=== PATIENT | male | born 1935 | race Caucasian/White ===

== ENCOUNTER 2016-12-16 18:48 | Inpatient (IN) | payer OTHER ==
[~2016-12-16] VITALS: Ht 182.9 cm; Wt 93.0 kg
[~2016-12-16 18:48] MED LIST: ASPIR 8181 M1 PO; AXID150 MG PO; BENAZEPRIL HCL10 MG PO; CENTRUM SILVER1 EAC3 PO; COUMADIN3 MG PO; ELAVIL10 MG PO; KEFLEX500 MG PO; LASIX40 MG PO; LIPITOR40 MG PO; METOPROLOL TAR100 MG PO; NORCO 5/3251 TABLET PO; NORVASC10 MG PO; PROAIR HFA8.5 GM IH; TRAMADOL HCL50 MG PO; TYLENOL EXTRA500 MG PO; VITAMIN D31000 UNI2 PO
[2016-12-16 19:09] LABS: HEMATOCRIT 47.6 % (38.0-50.0); MCH 32.8 PG (29.0-34.0); MCHC 32.8 G/DL (30.0-36.0); MCV 100.2 FL (86-99); PLATELET COUNT 138 K/uL (156-360); RBC DIS.WIDTH-CV 12.6 % (11.8-14.6); RBC DIS.WIDTH-SD 47.3 % (39-53); RED BLOOD COUNT 4.75 M/uL (4.00-5.50); WHITE BLOOD COUNT 6.6 K/uL (4.1-10.2)
[2016-12-16 19:18] LABS: INTER. NORMALIZED RATIO 1.3; PROTHROMBIN TIME 14.8 SEC (10.2-12.9)
[2016-12-16 19:20] LABS: PTT 29.2 SEC (25-37)
[2016-12-16 19:21] LABS: CHLORIDE 112 mEq/L (99-109); POTASSIUM 4.9 mEq/L (3.7-5.4); SODIUM 142 mEq/L (136-147)
[2016-12-16 19:23] LABS: GLUCOSE 115 mg/dL (70-99)
[2016-12-16 19:24] LABS: ANION GAP 10 MEQ/L (2-14)
[2016-12-16 19:27] LABS: GFR ESTIMATE (CALCULATED) 20 mL/min/
[2016-12-16 19:28] LABS: UREA NITROGEN (BUN) 51 mg/dL (9-23)
[2016-12-16 22:18] LABS: ADD MIUA? YES; BILIRUBIN NEGATIVE; BLOOD SMALL; COLOR YELLOW ((YELLOW)); GLUCOSE (STRIP) NEGATIVE; KETONES NEGATIVE; LEUKOCYTES NEGATIVE; NITRITE NEGATIVE; PROTEIN (STRIP) 100; SPECIFIC GRAVITY 1.014 (1.000-1.030); UROBILINOGEN 0.2 MG/DL (0.2-1.0)
[2016-12-16 22:23] LABS: BACTERIA RARE /HPF; EPITHELIAL CELLS RARE /HPF; HYALINE CASTS 0-5 /LPF; MUCUS TRACE /LPF; UCUL ADDED? NO; WHITE BLOOD CELLS 0-5 /HPF (0-5)
[2016-12-17 01:13] VITALS: BP 190/89
[2016-12-17 01:23] LABS: HDL CHOLESTEROL 50 MG/DL (Desirable>=40); LDL CHOLESTEROL 67 mg/dL (Desirable<100); NON-HDL CHOLESTEROL 107 mg/dL (Desirable<160); TOTAL CHOLESTEROL 157 mg/dL (Desirable<200); TRIGLYCERIDES 200 MG/DL (Normal: <150)
[2016-12-17 04:34] VITALS: BP 186/95
[2016-12-17 06:01] LABS: HEMATOCRIT 44.5 % (38.0-50.0); MCH 33.4 PG (29.0-34.0); MCV 101.1 FL (86-99); MEAN PLAT.VOLUME 11.9 uM^3 (9.0-12.4); PLATELET COUNT 129 K/uL (156-360); RBC DIS.WIDTH-CV 12.7 % (11.8-14.6); RBC DIS.WIDTH-SD 47.8 % (39-53); WHITE BLOOD COUNT 6.1 K/uL (4.1-10.2)
[2016-12-17 06:35] LABS: ALKALINE PHOSPHATASE 85 IU/L (3-129); ANION GAP 11 MEQ/L (2-14); CHLORIDE 111 MEQ/L (99-109); GFR ESTIMATE (CALCULATED) 22 mL/min/; GLUCOSE 88 mg/dL (70-99); POTASSIUM 4.6 MEQ/L (3.7-5.4); SAMPLE HEMOLYSIS CHECK 0; SAMPLE ICTERIC CHECK 0; SAMPLE LIPEMIA CHECK 0; SODIUM 143 MEQ/L (136-147); TOTAL BILIRUBIN 0.8 MG/DL (0.0-1.0); UREA NITROGEN (BUN) 53 mg/dL (9-23)
[2016-12-17 07:20] LABS: Estimated Average Glucose 120 mg/dL (70-123); HEMOGLOBIN A1c (GLYCOHEMOGLOB) 5.8 % HGB (Below 5.7)
[2016-12-17 08:05] VITALS: BP 186/96
[2016-12-17 11:01] VITALS: BP 198/104
[2016-12-17] MEDS ORDERED: COUMADIN2.5 MG PO (15:51)
[2016-12-17 15:53] LABS: INTER. NORMALIZED RATIO 1.3; PROTHROMBIN TIME 14.3 SEC (10.2-12.9)
[2016-12-17 16:02] VITALS: BP 194/83
[2016-12-17] MEDS ORDERED: ALLERGY RELIEF180 MG PO (16:35)
[2016-12-17] MEDS ORDERED: LOTENSIN5 MG PO (16:35)
[2016-12-17] MEDS ORDERED: HEARTBURN RELI150 M1 PO (16:35)
[2016-12-17] MEDS ORDERED: LIPITOR40 MG PO (16:36)
[2016-12-17] MEDS ORDERED: METOPROLOL SUC100 MG PO (16:36)
[2016-12-17] MEDS ORDERED: NORVASC10 MG PO (16:36)
[2016-12-17 19:39] VITALS: BP 162/73
[2016-12-18 03:43] VITALS: BP 174/81
[2016-12-18 06:18] LABS: INTER. NORMALIZED RATIO 1.2; PROTHROMBIN TIME 13.5 SEC (10.2-12.9)
[2016-12-18 08:55] VITALS: BP 204/98
[2016-12-18 15:43] VITALS: BP 192/87
[2016-12-18 19:17] VITALS: BP 170/90
[2016-12-18 23:48] VITALS: BP 185/86
[2016-12-19 03:43] VITALS: BP 198/87
[2016-12-19 07:00] LABS: INTER. NORMALIZED RATIO 1.2; PROTHROMBIN TIME 13.6 SEC (10.2-12.9)
[2016-12-19 07:18] LABS: ANION GAP 11 MEQ/L (2-14); CHLORIDE 111 MEQ/L (99-109); GFR ESTIMATE (CALCULATED) 24 mL/min/; GLUCOSE 103 mg/dL (70-99); POTASSIUM 4.4 MEQ/L (3.7-5.4); SAMPLE HEMOLYSIS CHECK 0; SAMPLE ICTERIC CHECK 0; SAMPLE LIPEMIA CHECK 0; SODIUM 142 MEQ/L (136-147); UREA NITROGEN (BUN) 55 mg/dL (9-23)
[2016-12-19 07:46] VITALS: BP 176/77
[2016-12-19 08:02] LABS: EOSINOPHIL (%) 2.5 % (0-5); EOSINOPHIL COUNT 0.2 K/uL (0-0.3); HEMATOCRIT 48.7 % (38.0-50.0); IMMATURE GRANULOCYTE (%) 0.5 % (0.0-0.7); INSTRUMENT ABS NEUTROPHIL CT 5.7 K/uL; LYMPHOCYTE COUNT 1.2 K/uL (1.0-2.8); MCH 32.9 PG (29.0-34.0); MCHC 33.5 G/DL (30.0-36.0); MCV 98.4 FL (86-99); MEAN PLAT.VOLUME 11.2 uM^3 (9.0-12.4); MONOCYTE (%) 10.2 % (3-12); MONOCYTE COUNT 0.8 K/uL (0-0.8); NEUTROPHIL (%) 71.9 % (45-76); NEUTROPHIL COUNT 5.7 K/uL (1.8-6.4); PLATELET COUNT 149 K/uL (156-360); RBC DIS.WIDTH-CV 12.7 % (11.8-14.6); RED BLOOD COUNT 4.95 M/uL (4.00-5.50)
[2016-12-19 11:38] VITALS: BP 179/86
[2016-12-19] MEDS ORDERED: VENTOLIN HFA18 GM IH (13:59)
[2016-12-19] MEDS ORDERED: LOVENOX30 MG/0.3 SC (14:00)
[2016-12-19] MEDS ORDERED: APRESOLINE25 MG PO (14:00)
[2016-12-19] MEDS ORDERED: TYLENOL REGULA325 MG PO (14:01)
[2016-12-19] MEDS ORDERED: VALSARTAN160 MG PO (14:01)
[2016-12-19] MEDS ORDERED: DOCUSATE SODIU100 MG PO (14:01)
[2016-12-19] MEDS ORDERED: VITAMIN D31000 UNI2 PO (14:02)
[2016-12-19 16:03] VITALS: BP 171/81
== END 2016-12-19 20:34 | DRG 89 ==
LOC: EME 18:48 → EDOF 22:36 → 5SOUTH 22:36 → ENRESERV 22:38 → 5SOUTH 12-17 00:59
PROVIDERS: Emergency Medicine; Family Medicine Sports Medicine
DX: S06.0X9A Concussion with loss of consciousness of unspecified duration, initial encounter (principal); G45.9 Transient cerebral ischemic attack, unspecified; I67.4 Hypertensive encephalopathy; R41.82 Altered mental status, unspecified; R47.01 Aphasia; R26.2 Difficulty in walking, not elsewhere classified; N28.9 Disorder of kidney and ureter, unspecified; I12.9 Hypertensive chronic kidney disease with stage 1 through stage 4 chronic kidney disease, or unspecified chronic kidney disease; N18.4 Chronic kidney disease, stage 4 (severe); I25.10 Atherosclerotic heart disease of native coronary artery without angina pectoris; E78.5 Hyperlipidemia, unspecified; I73.9 Peripheral vascular disease, unspecified; J44.9 Chronic obstructive pulmonary disease, unspecified; K21.9 Gastro-esophageal reflux disease without esophagitis; I42.9 Cardiomyopathy, unspecified; M19.90 Unspecified osteoarthritis, unspecified site; W06.XXXA Fall from bed, initial encounter; Y92.003 Bedroom of unspecified non-institutional (private) residence as the place of occurrence of the external cause; Z87.891 Personal history of nicotine dependence; I25.2 Old myocardial infarction; Z79.01 Long term (current) use of anticoagulants; Z79.82 Long term (current) use of aspirin; Z86.711 Personal history of pulmonary embolism; Z86.718 Personal history of other venous thrombosis and embolism; Z86.73 Personal history of transient ischemic attack (TIA), and cerebral infarction without residual deficits; Z95.0 Presence of cardiac pacemaker; Z95.810 Presence of automatic (implantable) cardiac defibrillator
CPT/HCPCS: 70450; 74230; 80048; 80053; 80061; 81003; 82948; 83036; 85025; 85027; 85610; 85730; 92611 GN; 93005; 93306; 93880; 97530 GO; 99281; 99285; J0360; J1650; J7030

== ENCOUNTER 2016-12-21 16:27 | Inpatient (IN) | payer OTHER ==
[~2016-12-21] VITALS: Ht 170.2 cm; Wt 92.4 kg
[~2016-12-21 16:27] MED LIST changes: +ALLERGY RELIEF180 MG PO; +APRESOLINE25 MG PO; +COUMADIN2.5 MG PO; +DOCUSATE SODIU100 MG PO; +HEARTBURN RELI150 M1 PO; +LOTENSIN5 MG PO; +LOVENOX30 MG/0.3 SC; +METOPROLOL SUC100 MG PO; +TYLENOL REGULA325 MG PO; +VALSARTAN160 MG PO; +VENTOLIN HFA18 GM IH
[2016-12-21 17:32] LABS: EOSINOPHIL (%) 3.2 % (0-5); EOSINOPHIL COUNT 0.2 K/uL (0-0.3); HEMATOCRIT 45.2 % (38.0-50.0); IMMATURE GRANULOCYTE (%) 0.3 % (0.0-0.7); INSTRUMENT ABS NEUTROPHIL CT 4.7 K/uL; LYMPHOCYTE COUNT 1.2 K/uL (1.0-2.8); MCH 33.2 PG (29.0-34.0); MCHC 33.2 G/DL (30.0-36.0); MEAN PLAT.VOLUME 11.3 uM^3 (9.0-12.4); NEUTROPHIL (%) 65.1 % (45-76); NEUTROPHIL COUNT 4.7 K/uL (1.8-6.4); PLATELET COUNT 136 K/uL (156-360); RBC DIS.WIDTH-CV 12.9 % (11.8-14.6); RBC DIS.WIDTH-SD 47.8 % (39-53); RED BLOOD COUNT 4.52 M/uL (4.00-5.50); WHITE BLOOD COUNT 7.2 K/uL (4.1-10.2)
[2016-12-21 17:41] LABS: CHLORIDE 107 mEq/L (99-109); POTASSIUM 4.8 mEq/L (3.7-5.4); SODIUM 138 mEq/L (136-147)
[2016-12-21 17:42] LABS: MAGNESIUM 2.5 mg/dL (1.3-2.7)
[2016-12-21 17:44] LABS: GLUCOSE 113 mg/dL (70-99)
[2016-12-21 17:45] LABS: ANION GAP 15 MEQ/L (2-14)
[2016-12-21 17:46] LABS: TOTAL BILIRUBIN 0.8 mg/dL (0.0-1.0)
[2016-12-21 17:47] LABS: ALKALINE PHOSPHATASE 105 IU/L (3-129); GFR ESTIMATE (CALCULATED) 8 mL/min/
[2016-12-21 17:49] LABS: UREA NITROGEN (BUN) 96 mg/dL (9-23)
[2016-12-21 17:57] LABS: INTER. NORMALIZED RATIO 1.7; PROTHROMBIN TIME 19.6 SEC (10.2-12.9)
[2016-12-21 18:54] LABS: ADD MIUA? YES; BILIRUBIN NEGATIVE; BLOOD NEGATIVE; COLOR YELLOW ((YELLOW)); GLUCOSE (STRIP) NEGATIVE; KETONES NEGATIVE; LEUKOCYTES NEGATIVE; NITRITE NEGATIVE; PROTEIN (STRIP) 100; SPECIFIC GRAVITY 1.015 (1.000-1.030); UROBILINOGEN 0.2 MG/DL (0.2-1.0)
[2016-12-21 18:57] LABS: BACTERIA NONE SEEN /HPF; EPITHELIAL CELLS RARE /HPF; HYALINE CASTS 0-5 /LPF; MUCUS TRACE /LPF; RED BLOOD CELLS 0-5 /HPF (0-5); UCUL ADDED? NO; WHITE BLOOD CELLS 0-5 /HPF (0-5)
[2016-12-21 23:07] VITALS: BP 160/77
[2016-12-22] MEDS ORDERED: NORVASC10 MG PO (01:03)
[2016-12-22] MEDS ORDERED: DULCOLAX10 MG PR (01:21)
[2016-12-22] MEDS ORDERED: FLEET ENEMA-AD118 ML PR (01:22)
[2016-12-22 02:31] LABS: METH RESISTANT S AUREUS PCR NEGATIVE (NEGATIVE)
[2016-12-22 02:33] LABS: PROBE CHECK PASS; SPECIMEN PROCESSING CONTROL PASS
[2016-12-22 03:39] VITALS: BP 132/62
[2016-12-22 07:20] LABS: INTER. NORMALIZED RATIO 1.8; PROTHROMBIN TIME 20.4 SEC (10.2-12.9)
[2016-12-22 07:30] VITALS: BP 140/60
[2016-12-22 07:31] LABS: ANION GAP 14 MEQ/L (2-14); CHLORIDE 108 MEQ/L (99-109); GFR ESTIMATE (CALCULATED) 9 mL/min/; POTASSIUM 4.6 MEQ/L (3.7-5.4); SAMPLE HEMOLYSIS CHECK 0; SAMPLE ICTERIC CHECK 0; SAMPLE LIPEMIA CHECK 0; SODIUM 140 MEQ/L (136-147); UREA NITROGEN (BUN) 98 mg/dL (9-23)
[2016-12-22 07:33] LABS: GLUCOSE 68 mg/dL (70-99)
[2016-12-22 11:05] VITALS: BP 145/67
[2016-12-22 16:06] VITALS: BP 155/65
[2016-12-22 20:05] VITALS: BP 128/66
[2016-12-23] VITALS (7 sets, daily range): BP systolic 102–158; BP diastolic 55–71
[2016-12-23 06:29] LABS: INTER. NORMALIZED RATIO 1.6
[2016-12-23 06:43] LABS: ANION GAP 12 MEQ/L (2-14); CHLORIDE 105 MEQ/L (99-109); GFR ESTIMATE (CALCULATED) 10 mL/min/; GLUCOSE 82 mg/dL (70-99); POTASSIUM 4.3 MEQ/L (3.7-5.4); SAMPLE HEMOLYSIS CHECK 0; SAMPLE ICTERIC CHECK 0; SAMPLE LIPEMIA CHECK 0; SODIUM 137 MEQ/L (136-147); UREA NITROGEN (BUN) 98 mg/dL (9-23)
[2016-12-24 07:08] LABS: INTER. NORMALIZED RATIO 1.6; PROTHROMBIN TIME 17.6 SEC (10.2-12.9)
[2016-12-24 08:20] VITALS: BP 148/79
[2016-12-24 08:33] LABS: ANION GAP 10 MEQ/L (2-14); CHLORIDE 103 MEQ/L (99-109); POTASSIUM 4.4 MEQ/L (3.7-5.4); SAMPLE HEMOLYSIS CHECK 0; SAMPLE ICTERIC CHECK 0; SAMPLE LIPEMIA CHECK 0; SODIUM 137 MEQ/L (136-147)
[2016-12-24 08:45] LABS: GFR ESTIMATE (CALCULATED) 11 mL/min/; GLUCOSE 107 mg/dL (70-99); UREA NITROGEN (BUN) 101 mg/dL (9-23)
[2016-12-24 11:58] VITALS: BP 135/70
[2016-12-24 15:46] VITALS: BP 134/92
[2016-12-24 20:31] VITALS: BP 157/72
[2016-12-25] VITALS (8 sets, daily range): BP systolic 131–190; BP diastolic 72–91
[2016-12-25 06:26] LABS: PROTHROMBIN TIME 22.5 SEC (10.2-12.9)
[2016-12-25 07:21] LABS: ANION GAP 12 MEQ/L (2-14); CHLORIDE 108 MEQ/L (99-109); GLUCOSE 92 mg/dL (70-99); POTASSIUM 4.3 MEQ/L (3.7-5.4); SAMPLE HEMOLYSIS CHECK 0; SAMPLE ICTERIC CHECK 0; SAMPLE LIPEMIA CHECK 0; UREA NITROGEN (BUN) 94 mg/dL (9-23)
[2016-12-25 07:26] LABS: GFR ESTIMATE (CALCULATED) 14 mL/min/; SODIUM 144 MEQ/L (136-147)
[2016-12-26 07:22] LABS: ANION GAP 8 MEQ/L (2-14); CHLORIDE 108 MEQ/L (99-109); GFR ESTIMATE (CALCULATED) 15 mL/min/; GLUCOSE 83 mg/dL (70-99); POTASSIUM 4.7 MEQ/L (3.7-5.4); SAMPLE HEMOLYSIS CHECK 0; SAMPLE ICTERIC CHECK 0; SAMPLE LIPEMIA CHECK 0; SODIUM 141 MEQ/L (136-147); UREA NITROGEN (BUN) 81 mg/dL (9-23)
[2016-12-26 07:24] LABS: EOSINOPHIL (%) 4.4 % (0-5); EOSINOPHIL COUNT 0.3 K/uL (0-0.3); HEMATOCRIT 39.1 % (38.0-50.0); IMMATURE GRANULOCYTE (%) 0.2 % (0.0-0.7); INSTRUMENT ABS NEUTROPHIL CT 3.6 K/uL; LYMPHOCYTE COUNT 1.1 K/uL (1.0-2.8); MCH 32.7 PG (29.0-34.0); MCHC 32.7 G/DL (30.0-36.0); MEAN PLAT.VOLUME 12.4 uM^3 (9.0-12.4); MONOCYTE (%) 16.6 % (3-12); NEUTROPHIL (%) 59.9 % (45-76); NEUTROPHIL COUNT 3.6 K/uL (1.8-6.4); PLATELET COUNT 100 K/uL (156-360); RBC DIS.WIDTH-CV 12.5 % (11.8-14.6); RBC DIS.WIDTH-SD 45.9 % (39-53); RED BLOOD COUNT 3.91 M/uL (4.00-5.50)
[2016-12-26 07:30] LABS: INTER. NORMALIZED RATIO 2.5; PROTHROMBIN TIME 28.5 SEC (10.2-12.9)
[2016-12-26 07:57] VITALS: BP 131/61
[2016-12-26 16:39] VITALS: BP 137/68
[2016-12-26] MEDS ORDERED: COUMADIN2 MG PO (16:41)
[2016-12-26] MEDS ORDERED: CALCIUM ACETAT667 MG PO (16:42)
[2016-12-26] MEDS ORDERED: APRESOLINE50 MG PO (16:43)
== END 2016-12-26 19:49 | DRG 682 ==
LOC: EME → EDBD 16:27 → 3EAST 18:26 → EDOF 18:26 → ENRESERV 18:38 → 3EAST 22:42
PROVIDERS: Emergency Medicine; Internal Medicine; Internal Medicine Nephrology
DX: N17.9 Acute kidney failure, unspecified (principal); E87.2 Acidosis; R33.8 Other retention of urine; I42.0 Dilated cardiomyopathy; F03.90 Unspecified dementia, unspecified severity, without behavioral disturbance, psychotic disturbance, mood disturbance, and anxiety; N40.1 Benign prostatic hyperplasia with lower urinary tract symptoms; G93.40 Encephalopathy, unspecified; N18.4 Chronic kidney disease, stage 4 (severe); E86.0 Dehydration; N28.1 Cyst of kidney, acquired; J44.9 Chronic obstructive pulmonary disease, unspecified; I12.9 Hypertensive chronic kidney disease with stage 1 through stage 4 chronic kidney disease, or unspecified chronic kidney disease; I49.9 Cardiac arrhythmia, unspecified; I25.10 Atherosclerotic heart disease of native coronary artery without angina pectoris; R47.01 Aphasia; E78.5 Hyperlipidemia, unspecified; I73.9 Peripheral vascular disease, unspecified; I87.8 Other specified disorders of veins; K21.9 Gastro-esophageal reflux disease without esophagitis; Z68.31 Body mass index [BMI] 31.0-31.9, adult; Z86.718 Personal history of other venous thrombosis and embolism; Z86.711 Personal history of pulmonary embolism; Z86.73 Personal history of transient ischemic attack (TIA), and cerebral infarction without residual deficits; Z95.810 Presence of automatic (implantable) cardiac defibrillator; Z87.891 Personal history of nicotine dependence; Z87.442 Personal history of urinary calculi
CPT/HCPCS: 71010; 76770; 80048; 80053; 80069; 81003; 83735; 84100; 85025; 85025 91; 85610; 87641; 93005; 99202; 99281; 99285; J1644; J7030

== ENCOUNTER 2017-01-16 21:08 | Emergency (ER) | payer OTHER ==
[~2017-01-16] VITALS: Ht 170.2 cm; Wt 106.9 kg
[~2017-01-16 21:08] MED LIST changes: +APRESOLINE50 MG PO; +CALCIUM ACETAT667 MG PO; +COUMADIN2 MG PO; +DULCOLAX10 MG PR; +FLEET ENEMA-AD118 ML PR
[2017-01-16 22:16] LABS: MCHC 32.8 G/DL (30.0-36.0); MEAN PLAT.VOLUME 12.1 uM^3 (9.0-12.4); RBC DIS.WIDTH-CV 12.3 % (11.8-14.6); RBC DIS.WIDTH-SD 44.6 % (39-53); RED BLOOD COUNT 3.69 M/uL (4.00-5.50); WHITE BLOOD COUNT 9.4 K/uL (4.1-10.2)
[2017-01-16 22:17] LABS: CARBON DIOXIDE (BICARBONATE) 20.2 MEQ/L (20-31); MCV 97.6 FL (86-99); PLATELET COUNT 160 K/uL (156-360)
[2017-01-16 22:27] LABS: CHLORIDE 112 mEq/L (99-109); POTASSIUM 4.3 mEq/L (3.7-5.4); SODIUM 137 mEq/L (136-147)
[2017-01-16 22:29] LABS: GLUCOSE 151 mg/dL (70-99)
[2017-01-16 22:30] LABS: ANION GAP 8 MEQ/L (2-14)
[2017-01-16 22:33] LABS: GFR ESTIMATE (CALCULATED) 20 mL/min/
[2017-01-16 22:34] LABS: UREA NITROGEN (BUN) 83 mg/dL (9-23)
[2017-01-16 22:41] LABS: TROP-I INTERPRETATION NEGATIVE; TROPONIN-I 0.09 ng/mL (0.0-0.30)
[2017-01-17] MEDS ORDERED: LEVAQUIN750 MG PO
[2017-01-17 00:48] VITALS: BP 142/79
== END 2017-01-17 00:49 | disposition home or self-care (01) ==
LOC: EME 21:08
PROVIDERS: Emergency Medicine
DX: J18.9 Pneumonia, unspecified organism (principal); J44.9 Chronic obstructive pulmonary disease, unspecified; E78.5 Hyperlipidemia, unspecified; Z87.442 Personal history of urinary calculi; K21.9 Gastro-esophageal reflux disease without esophagitis; I12.9 Hypertensive chronic kidney disease with stage 1 through stage 4 chronic kidney disease, or unspecified chronic kidney disease; N18.9 Chronic kidney disease, unspecified; J44.0 Chronic obstructive pulmonary disease with (acute) lower respiratory infection; Z86.73 Personal history of transient ischemic attack (TIA), and cerebral infarction without residual deficits; I73.9 Peripheral vascular disease, unspecified; Z95.810 Presence of automatic (implantable) cardiac defibrillator; Z87.891 Personal history of nicotine dependence; Z79.01 Long term (current) use of anticoagulants
CPT/HCPCS: 71020; 80048; 82803; 83605; 83880; 84484; 85027; 87040; 93005; 99281; 99285

== ENCOUNTER 2017-03-12 18:20 | Emergency (ER) | payer OTHER ==
[~2017-03-12] VITALS: Ht 167.6 cm; Wt 90.9 kg
[~2017-03-12 18:20] MED LIST changes: +LEVAQUIN750 MG PO
[2017-03-12 18:49] LABS: HEMATOCRIT 40.2 % (38.0-50.0); MCH 32.5 PG (29.0-34.0); MCHC 33.1 G/DL (30.0-36.0); MCV 98.3 FL (86-99); MEAN PLAT.VOLUME 11.2 uM^3 (9.0-12.4); PLATELET COUNT 197 K/uL (156-360); RBC DIS.WIDTH-CV 13.5 % (11.8-14.6); RBC DIS.WIDTH-SD 49.1 % (39-53); RED BLOOD COUNT 4.09 M/uL (4.00-5.50); WHITE BLOOD COUNT 14.3 K/uL (4.1-10.2)
[2017-03-12 19:08] LABS: CHLORIDE 107 mEq/L (99-109); POTASSIUM 3.5 mEq/L (3.7-5.4); SODIUM 141 mEq/L (136-147)
[2017-03-12 19:10] LABS: GLUCOSE 212 mg/dL (70-99)
[2017-03-12 19:11] LABS: ANION GAP 13 MEQ/L (2-14)
[2017-03-12 19:12] LABS: TOTAL BILIRUBIN 4.5 mg/dL (0.0-1.0)
[2017-03-12 19:13] LABS: ALKALINE PHOSPHATASE 227 IU/L (3-129)
[2017-03-12 19:14] LABS: GFR ESTIMATE (CALCULATED) 29 mL/min/
[2017-03-12 19:15] LABS: UREA NITROGEN (BUN) 25 mg/dL (9-23)
[2017-03-12 20:39] LABS: LIPASE 132 U/L (1.0-51.0)
[2017-03-12 22:56] LABS: INTER. NORMALIZED RATIO 3.4
[2017-03-12 22:57] LABS: PROTHROMBIN TIME 39.2 SEC (10.2-12.9)
[2017-03-12 22:58] LABS: PTT 36.1 SEC (25-37)
[2017-03-13] VITALS: BP 137/71
== END 2017-03-13 00:04 | disposition short-term general hospital (02) ==
LOC: EME 18:20
PROVIDERS: Emergency Medicine
DX: K80.31 Calculus of bile duct with cholangitis, unspecified, with obstruction (principal); K21.9 Gastro-esophageal reflux disease without esophagitis; J44.9 Chronic obstructive pulmonary disease, unspecified; E78.5 Hyperlipidemia, unspecified; I10 Essential (primary) hypertension; I73.9 Peripheral vascular disease, unspecified; Z90.49 Acquired absence of other specified parts of digestive tract; Z87.442 Personal history of urinary calculi; Z86.73 Personal history of transient ischemic attack (TIA), and cerebral infarction without residual deficits; Z85.9 Personal history of malignant neoplasm, unspecified; Z95.0 Presence of cardiac pacemaker; Z87.891 Personal history of nicotine dependence; Z79.01 Long term (current) use of anticoagulants; Z88.8 Allergy status to other drugs, medicaments and biological substances
CPT/HCPCS: 74176; 80053; 81003; 83690; 85027; 85610; 85730; 87040; 87077; 87186; 87801; 94640; 99281; 99285; J2270; J2405; J2543; J2930; J7030; J7040

== ENCOUNTER 2017-07-04 20:17 | Inpatient (IN) | payer OTHER ==
[~2017-07-04] VITALS: Ht 167.6 cm; Wt 86.3 kg
[2017-07-04 21:09] LABS: HEMATOCRIT 41.9 % (38.0-50.0); HEMOGLOBIN 14.3 G/DL (12.5-16.6); MCH 33.4 PG (29.0-34.0); MCHC 34.1 G/DL (30.0-36.0); MCV 97.9 FL (86-99); PLATELET COUNT 115 K/uL (156-360); RBC DIS.WIDTH-CV 13.8 % (11.8-14.6); RBC DIS.WIDTH-SD 49.5 % (39-53); RED BLOOD COUNT 4.28 M/uL (4.00-5.50); WHITE BLOOD COUNT 6.3 K/uL (4.1-10.2)
[2017-07-04 21:19] LABS: CHLORIDE 109 mEq/L (99-109); POTASSIUM 4.3 mEq/L (3.7-5.4); SODIUM 142 mEq/L (136-147)
[2017-07-04 21:20] LABS: GLUCOSE 85 mg/dL (70-99)
[2017-07-04 21:24] LABS: CREATININE 2.6 mg/dL (0.6-1.3); GFR ESTIMATE (CALCULATED) 25 mL/min/ (58.99-99999)
[2017-07-04 21:25] LABS: UREA NITROGEN (BUN) 35 mg/dL (9-23)
[2017-07-04 21:35] LABS: TROP-I INTERPRETATION NEGATIVE; TROPONIN-I 0.07 ng/mL (0.0-0.30)
[2017-07-05 00:28] LABS: TROP-I INTERPRETATION NEGATIVE; TROPONIN-I 0.07 ng/mL (0.0-0.30)
[2017-07-05] MEDS ORDERED: LASIX20 MG PO ×2 (03:42→20:30)
[2017-07-05] MEDS ORDERED: METOPROLOL SUC100 MG PO (03:43)
[2017-07-05] MEDS ORDERED: SPIRIVA1 INHALATI IH (03:44)
[2017-07-05] MEDS ORDERED: TRAVATAN Z5 ML BOTH EYES (03:44)
[2017-07-05] MEDS ORDERED: PROTONIX40 MG PO (03:45)
[2017-07-05] MEDS ORDERED: CENTRUM ADULTS1 EACH PO (03:46)
[2017-07-05 05:32] VITALS: BP 207/98
[2017-07-05 08:32] VITALS: BP 169/82
[2017-07-05 19:31] VITALS: BP 136/72
[2017-07-05 19:34] VITALS: BP 148/72
[2017-07-05] MEDS ORDERED: APRESOLINE25 MG PO (20:29)
[2017-07-05] MEDS ORDERED: DIOVAN160 MG PO (20:31)
[2017-07-05] MEDS ORDERED: DURLAZA162.5 MG PO (20:34)
== END 2017-07-05 21:20 | disposition home or self-care (01) | DRG 291 ==
LOC: EME 20:17 → EDOF 07-05 03:40 → ENRESERV 07-05 03:45 → 5SOUTH 07-05 05:01
PROVIDERS: Emergency Medicine
DX: I13.0 Hypertensive heart and chronic kidney disease with heart failure and stage 1 through stage 4 chronic kidney disease, or unspecified chronic kidney disease (principal); I50.23 Acute on chronic systolic (congestive) heart failure; N18.3 Chronic kidney disease, stage 3 (moderate); I42.0 Dilated cardiomyopathy; Z95.810 Presence of automatic (implantable) cardiac defibrillator; Z87.01 Personal history of pneumonia (recurrent); Z86.73 Personal history of transient ischemic attack (TIA), and cerebral infarction without residual deficits; Z86.711 Personal history of pulmonary embolism; Z86.718 Personal history of other venous thrombosis and embolism; Z87.891 Personal history of nicotine dependence; E66.9 Obesity, unspecified; Z68.30 Body mass index [BMI] 30.0-30.9, adult; I25.10 Atherosclerotic heart disease of native coronary artery without angina pectoris; K21.9 Gastro-esophageal reflux disease without esophagitis; M19.90 Unspecified osteoarthritis, unspecified site; N18.9 Chronic kidney disease, unspecified; J44.9 Chronic obstructive pulmonary disease, unspecified; E78.5 Hyperlipidemia, unspecified
CPT/HCPCS: 71046; 78582; 80048; 83880; 84484; 85027; 93005; 93970; 94640; 94760; 99202; 99281; 99285; A9540; A9567; J1650; J1940